=== PATIENT | female | born 1975 | race Caucasian/White ===

== ENCOUNTER 2022-07-14 05:00 | Day surgery (SDC) | payer OTHER | END 2022-07-14 09:40 | disposition home or self-care (01) | LOC: AMB-ENDOS 05:00 | PROVIDERS: ATTEND Surgery | DX: R10.13 Epigastric pain (principal); E66.09 Other obesity due to excess calories; K44.9 Diaphragmatic hernia without obstruction or gangrene; K29.60 Other gastritis without bleeding ==